=== PATIENT | female | born 1975 | race Caucasian/White ===

== ENCOUNTER 2016-11-28 04:50 | Emergency (ER) | payer OTHER ==
[~2016-11-28] VITALS: Ht 167.6 cm; Wt 108.5 kg
[~2016-11-28 04:50] MED LIST: ESTR.3 PO; FLUO-1 PO; PRED50 PO; PROM10SO PO; QUET1TAB9 PO; SIMV20TA PO
[2016-11-28 05:00] VITALS: BP 128/84; PULSE 83; RESP 18; TEMP 98.8; O2SAT 95
--- NOTE | 2016-11-28 05:09 | PD ---
HPI Chief Complaint: sore throat Time Seen by Provider: 05:08 Travel History International Travel<30 days: No Contact w/Intl Traveler<30days: No Traveled to known affect area: No History of Present Illness HPI Patient is a 41-year-old female presents emergency department for evaluation of sore throat. Patient states she was seen by her primary care physician a few days ago and was diagnosed with strep throat. She returns tonight because she was given a prescription for ciprofloxacin and this prescription does not even have the patient's name on it, appears though small air may have occurred. Patient states that she called her primary care physician would already left the office for the weekend and so she presents emergency department. Endorses fevers and anterior neck pain. Denies any cough congestion shortness of breath. PFSH Past Medical History Bipolar Disorder: Yes Cardiovascular Problems: Yes (HTN) High Cholesterol: Yes Diminished Hearing: No Hypertension: Yes Musculoskeletal: Yes (chronic back pain) Respiratory: Yes (sleep apnea ) Menopausal: Yes Ectopic : Yes Past Surgical History Appendectomy: Yes Hysterectomy: Yes Social History Alcohol Use: No Tobacco Use: Yes (e cig) Substance Use: No Allergies-Medications (Allergen,Severity, Reaction): Coded Allergies: Aspirin (Verified Allergy, Mild, HIVES, 11/28/16) Reported Meds & Prescriptions Reported Meds & Active Scripts Active Reported Prozac (Fluoxetine HCl) 10 Mg Cap 10 Mg PO TID Quetiapine (Quetiapine Fumarate) 200 Mg Tab 200 Mg PO DAILY Simvastatin 20 Mg Tab 20 Mg PO DAILY Review of Systems Except as stated in HPI: all other systems reviewed are Neg Physical Exam Narrative GENERAL: Well-nourished, well-developed patient. SKIN: Focused skin assessment warm/dry. HEAD: Normocephalic. EYES: No scleral icterus. No injection or drainage. ENT: Bilateral tonsillar enlargement with purulent, 2+ tonsils, tender anterior cervical lymphadenopathy. Neck is fully mobile nontender, uvula midline, TMs clear bilaterally. NECK: Supple, trachea midline. No JVD or lymphadenopathy. CARDIOVASCULAR: Regular rate and rhythm without murmurs, gallops, or rubs. RESPIRATORY: Breath sounds equal bilaterally. No accessory muscle use. GASTROINTESTINAL: Abdomen soft, non-tender, nondistended. MUSCULOSKELETAL: No cyanosis, or edema. BACK: Nontender without obvious deformity. No CVA tenderness. Data Data Last Documented VS Vital Signs Date Time Temp Pulse Resp B/P Pulse Ox O2 Delivery O2 Flow Rate FiO2 11/28/16 05:44 100 11/28/16 05:20 16 11/28/16 05:00 98.8 83 128/84 Orders Penicillin G Benzathine Inj (Bicillin L- (11/28/16 05:15) MDM Medical Decision Making Medical Screen Exam Complete: Yes Emergency Medical Condition: Yes Differential Diagnosis Streptococcal pharyngitis, mono, URI Narrative Course Patient was roomed in the emergency department, signs symptoms consistent with streptococcal pharyngitis, discussed Bicillin versus oral penicillin and patient opts for IM penicillin, she was given an injection and discussed symptomatic management returned ED criteria as well as follow-up the primary care physician. Diagnosis Primary Impression: Streptococcal pharyngitis Disposition: 01 DISCHARGE HOME Condition: Stable Herman Castillo MD Nov 28, 2016 05:08
[2016-11-28] MEDS ORDERED: PENICILLIN G BENZATHINE 1,200,000 UNITS/2 ML SYRINGE IM ONE (05:15)
== END 2016-11-28 05:46 | disposition home or self-care (01) ==
LOC: PHED 04:50
DX: J02.0 Streptococcal pharyngitis (principal); I10 Essential (primary) hypertension; E78.00 Pure hypercholesterolemia, unspecified; Z72.0 Tobacco use; Z86.59 Personal history of other mental and behavioral disorders; Z86.79 Personal history of other diseases of the circulatory system; Z87.39 Personal history of other diseases of the musculoskeletal system and connective tissue; Z87.09 Personal history of other diseases of the respiratory system
CPT/HCPCS: 96372; 99284; J0561

== ENCOUNTER 2017-08-15 09:13 | Emergency (ER) | payer OTHER ==
[~2017-08-15] VITALS: Ht 170.2 cm; Wt 110.0 kg
[~2017-08-15 09:13] MED LIST changes: -ESTR.3 PO; -PRED50 PO; -PROM10SO PO
[2017-08-15 09:15] VITALS: BP 200/100; PULSE 124; RESP 18; TEMP 98.3; O2SAT 97
[2017-08-15] MEDS ORDERED: LISI-515 PO (09:26)
[2017-08-15] MEDS ORDERED: NORV2.5T PO (09:26)
[2017-08-15] MEDS ORDERED: HYDR-3516 PO (09:26)
[2017-08-15] MEDS ORDERED: KETOROLAC TROMETHAMINE 60 MG/2 ML (IM) VIAL IM ONE ×2 (09:45→11:45)
--- NOTE | 2017-08-15 10:06 | PD ---
HPI Chief Complaint: Back/ Neck Pain or Injury Time Seen by Provider: 09:42 Travel History International Travel<30 days: No Contact w/Intl Traveler<30days: No Traveled to known affect area: No History of Present Illness HPI Patient presents with aggravation of chronic lower back pain. Followed by pain management for injections and using pain medication regularly. Denies any trauma misstep or fall. Reports some housework yesterday. States she was unable to sleep throughout the night secondary to pain. Last CT or MRI was over a year ago. PFSH Past Medical History Bipolar Disorder: Yes Cardiovascular Problems: Yes (HTN) High Cholesterol: Yes Diminished Hearing: No Hypertension: Yes Musculoskeletal: Yes (chronic back pain) Respiratory: Yes (sleep apnea ) ?: Not Menopausal: Yes Ectopic : Yes Past Surgical History Appendectomy: Yes Hysterectomy: Yes Social History Alcohol Use: No Tobacco Use: Yes (e cig) Substance Use: No Allergies-Medications (Allergen,Severity, Reaction): Coded Allergies: aspirin (Unverified Allergy, Mild, HIVES, 08/15/17) Reported Meds & Prescriptions Reported Meds & Active Scripts Active Reported Lisinopril 20 Mg Tab 20 Mg PO DAILY Hydrocodone-Acetaminophen 5-325 mg Tab 1 Tab PO Q4H PRN Norvasc (Amlodipine Besylate) 2.5 Mg Tab Unknown Dose PO DAILY Prozac (Fluoxetine HCl) 10 Mg Cap 10 Mg PO TID Quetiapine (Quetiapine Fumarate) 200 Mg Tab 200 Mg PO DAILY Simvastatin 20 Mg Tab 20 Mg PO DAILY Review of Systems General / Constitutional: No: Fever Eyes: No: Visual changes HENT: No: Headaches Cardiovascular: No: Chest Pain or Discomfort Respiratory: No: Shortness of Breath Gastrointestinal: No: Abdominal Pain Genitourinary: No: Dysuria Musculoskeletal: Positive: Pain Skin: No Rash Neurologic: No: Weakness Psychiatric: No: Depression Endocrine: No: Polydipsia Hematologic/Lymphatic: No: Easy Bruising Physical Exam Narrative GENERAL: Well-nourished, well-developed patient. SKIN: Focused skin assessment warm/dry. HEAD: Normocephalic. EYES: No scleral icterus. No injection or drainage. NECK: Supple, trachea midline. No JVD or lymphadenopathy. CARDIOVASCULAR: Regular rate and rhythm without murmurs, gallops, or rubs. RESPIRATORY: Breath sounds equal bilaterally. No accessory muscle use. GASTROINTESTINAL: Abdomen soft, non-tender, nondistended. MUSCULOSKELETAL: No cyanosis, or edema. BACK: Nontender without obvious deformity. No CVA tenderness. Examination lumbar sacral spine reveals midline tenderness with bilateral paraspinous pain negative straight leg raise Data Data Last Documented VS Vital Signs Date Time Temp Pulse Resp B/P (MAP) Pulse Ox O2 Delivery O2 Flow Rate FiO2 08/15/17 10:59 68 20 140/67 (91) 97 08/15/17 09:15 98.3 Orders Orders Ketorolac Inj (Toradol Inj) (08/15/17 09:45) Ct Lumb Spine W/O Contrast (08/15/17 ) Ketorolac Inj (Toradol Inj) (08/15/17 11:45) MDM Medical Decision Making Medical Screen Exam Complete: Yes Emergency Medical Condition: Yes Differential Diagnosis Lumbar degenerative disc disease, malingering, lumbar fracture Narrative Course Assessment and plan discussed with patient and at bedside. CT of the lumbar spine revealed loss of disc space height and mild bulging throughout the lumbar spine. There are mild impressions on the thecal sac at all the disc levels. Diagnosis Primary Impression: Lumbar back pain Patient Instructions: General Instructions Additional Instructions: Encourage nonsteroidal anti-inflammatories warm heat gentle stretching and strengthening and massage. Follow-up with PCP/pain management. Return to emergency medical onset of new symptoms. Med/Other Pt SpecificInfo: Prescription(s) given Scripts Cyclobenzaprine (Flexeril) 10 Mg Tab 10 MG PO TID for Muscle Spasm for 10 Days, #90 TAB 0 Refills Prov: Carmine Magallanes MD 08/15/17 Disposition: 01 DISCHARGE HOME Condition: Good Carmine Magallanes MD Aug 15, 2017 10:06
[2017-08-15 10:59] VITALS: BP 140/67; PULSE 68; RESP 20; O2SAT 97
--- NOTE | 2017-08-15 11:26 | RADRPT ---
EXAM DATE/TIME: 08/15/2017 10:08 [facility] COMPARISON: No previous studies available for comparison. INDICATIONS : Lower back pain. Radiculopathy. RADIATION DOSE: 40.16 CTDIvol (mGy) MEDICAL HISTORY : Hypercholesterolemia. Hypertension. SURGICAL HISTORY : Appendectomy. Hysterectomy. ENCOUNTER: Initial ACUITY: 1 month PAIN SCALE: 7/10 LOCATION: Spine TECHNIQUE: Volumetric scanning of the lumbar spine was performed. Multiplanar reconstructions in the sagittal, coronal and oblique axial planes were performed. Using automated exposure control and adjustment of the mA and/or kV according to patient size, radiation dose was kept as low as reasonab ly achievable to obtain optimal diagnostic quality images. DICOM format image data is available [facility] for review and comparison. FINDINGS: VERTEBRAE: Normal vertebral body height. ALIGNMENT: No evidence of subluxation. T12-L1: The thecal sac has a normal diameter. No evidence of disc bulge or protrusion. The neural foramina are patent bilaterally. L1-L2: Disc demonstrates mild decreased height. There is slight bulging without significant stenos is. The neural foramina are patent bilaterally. L2-L3: The disc demonstrates mild decreased height. There is mild diffuse disc bulge and minimal osteophytic ridging. This causes a mild impression on the thecal sac. The neural foramina are paten t bilaterally. L3-L4: Disc demonstrates decreased height. There is mild diffuse disc bulge. There is some mild posterior osteophytic ridging. There is a vacuum phenomenon at the disc. These changes do cause at least a mild impression on the thecal sac. The disc bulge is asymmetric being somewhat on the left c ausing a more prominent impression on the left lateral recess region. The neural foramina are patent bilaterally. L4-L5: The disc demonstrates decreased height. There is a vacuum phenomenon. There is mild diffu se disc bulge. The neural foramina are patent bilaterally. L5-S1: Disc demonstrates decreased height. There is mild disc bulge. There is osteophytic ridgin g. The neural foramina are grossly patent. There is moderate facet hypertrophy. CONCLUSION: Loss of disc space height and mild bulging throughout the lumbar spine. There are m ild impressions on the thecal sac at all the disc levels. Hayden Guillen MD on August 15, 2017 at 11:02 Board Certified Radiologist. This report was verified electronically.
[2017-08-15] MEDS ORDERED: CYCL10TA PO (11:44)
== END 2017-08-15 11:59 | disposition home or self-care (01) ==
LOC: PHED 09:13
DX: M54.5 Low back pain (principal); F31.9 Bipolar disorder, unspecified; I10 Essential (primary) hypertension; E78.00 Pure hypercholesterolemia, unspecified; F17.290 Nicotine dependence, other tobacco product, uncomplicated; Z79.899 Other long term (current) drug therapy
CPT/HCPCS: 72131; 96372; 99283; J1885